=== PATIENT | female | born 1985 | race Caucasian/White ===

== ENCOUNTER 2017-01-25 18:52 | Emergency (ER) | payer MEDICAID ==
[~2017-01-25] VITALS: Ht 162.6 cm; Wt 75.5 kg
[~2017-01-25 18:52] MED LIST: NO MEDS
[2017-01-25] MEDS ORDERED: IBUP-2070 PO (19:05)
[2017-01-25 19:58] VITALS: BP 138/88
== END 2017-01-25 20:06 | disposition home or self-care (01) ==
LOC: EMS 18:53
DX: K02.9 Dental caries, unspecified (principal); N83.201 Unspecified ovarian cyst, right side
CPT/HCPCS: 99283

== ENCOUNTER 2018-09-05 23:44 | Emergency (ER) | payer MEDICAID, OTHER ==
[~2018-09-05] VITALS: Ht 167.6 cm; Wt 79.5 kg
[~2018-09-05 23:44] MED LIST changes: +IBUP-2070 PO; -NO MEDS
[2018-09-06] MEDS ORDERED: KETOROLAC TROMETHAMINE 60 MG/2 ML VIAL IM ONE (02:30)
[2018-09-06] MEDS ORDERED: CARISOPRODOL 350 MG TABLET PO ONE (02:30)
[2018-09-06 03:23] LABS: APPEARANCE,URINE CLEAR (CLEAR); BILIRUBIN,URINE NEGATIVE (NEGATIVE); GLUCOSE, URINE (UA) >=1000 mg/dL (NEGATIVE); KETONES,URINE NEGATIVE (NEGATIVE); LEUKOCYTE ESTERASE ,URINE NEGATIVE (NEGATIVE); NITRATE,URINE NEGATIVE (NEGATIVE); OCCULT BLOOD,URINE MODERATE (NEGATIVE); PROTEIN,URINE NEGATIVE (NEGATIVE); UROBILINOGEN,URINE 0.2 mg/dL (<=1.0)
[2018-09-06 03:30] VITALS: BP 116/67
[2018-09-06 03:32] LABS: BACTERIA,URINE None Seen /HPF (None Seen); SQUAMOUS EPITHELIAL CELL,UR Rare /LPF (None Seen)
== END 2018-09-06 04:18 | disposition home or self-care (01) ==
LOC: EMS 23:45
DX: M54.5 Low back pain (principal); M54.6 Pain in thoracic spine; Z90.710 Acquired absence of both cervix and uterus
CPT/HCPCS: 72100; 81001; 84703; 96372; 99284; J1885

== ENCOUNTER 2023-12-20 09:56 | Emergency (ER) | payer OTHER ==
[~2023-12-20] VITALS: Ht 154.9 cm; Wt 73.6 kg
[2023-12-20 10:03] VITALS: TEMP 98.4
[2023-12-20] MEDS: LIDOCAINE 1% 10 ML VIAL PERC ONE (12:08)
[2023-12-20] MEDS: PERTUSS(ACELL),DIPH,TET/PF 0.5 ML SYRINGE [ADULT] IM. ONE (12:11)
[2023-12-20] MEDS: BACITRACIN 0.9 GM PACKET OINTMENT TP ONE (13:13)
[2023-12-20 13:50] VITALS: BP 118/67; PULSE 73; RESP 18
== END 2023-12-20 13:57 | disposition home or self-care (01) ==
LOC: EMS 09:56
DX: S61.411A Laceration without foreign body of right hand, initial encounter (principal); W26.8XXA Contact with other sharp object(s), not elsewhere classified, initial encounter; Y93.89 Activity, other specified; Y92.89 Other specified places as the place of occurrence of the external cause; Y99.8 Other external cause status
CPT/HCPCS: 12001; 90471; 90715; 99283; J3490

== ENCOUNTER 2024-08-14 17:43 | Emergency (ER) | payer OTHER ==
[~2024-08-14] VITALS: Ht 157.5 cm; Wt 67.7 kg
[2024-08-14] MEDS: ACETAMINOPHEN 500 MG TABLET PO ONE (18:23)
[2024-08-14 18:30] LABS: COVID AG,FIA SOURCE NASAL SWAB
[2024-08-14 18:34] LABS: APPEARANCE,URINE CLEAR (CLEAR); BILIRUBIN,URINE NEGATIVE (NEGATIVE); COLOR,URINE COLORLESS (YELLOW); GLUCOSE, URINE (UA) >=1000 mg/dL (NEGATIVE); LEUKOCYTE ESTERASE ,URINE NEGATIVE (NEGATIVE); NITRATE,URINE NEGATIVE (NEGATIVE); OCCULT BLOOD,URINE TRACE (NEGATIVE); PROTEIN,URINE NEGATIVE (NEGATIVE); SPECIFIC GRAVITIY, URINE 1.031 (1.003-1.030); UROBILINOGEN,URINE <=1.0 mg/dL (<=1.0)
[2024-08-14 18:53] LABS: INFLUENZA TYPE A NEGATIVE FOR TYPE A (NEGATIVE); INFLUENZA TYPE B NEGATIVE FOR TYPE B (NEGATIVE); SARS-COV2 (COVID) ANTIGEN,FIA Negative (Negative)
[2024-08-14 19:25] LABS: BACTERIA,URINE None Seen /HPF (None Seen); SQUAMOUS EPITHELIAL CELL,UR Few /LPF (None Seen)
[2024-08-14 19:44] LABS: BASOPHILS % (AUTO) 0.3 % (0.0-2.0); EOSINOPHILS % (AUTO) 0 % (1.0-6.0); HEMOGLOBIN 11.8 g/dL (12.0-16.0); LYMPHOCYTES # (AUTO) 1.4 K/uL (1.0-4.8); MEAN CORPUSCULAR HEMOGLOBIN 29.4 pg (26.0-34.0); MEAN CORPUSCULAR HGB CONC 32.9 G/dL (31.0-37.0); MEAN CORPUSCULAR VOLUME 89 fL (80-100); MONOCYTES # (AUTO) 0.9 K/uL (0.1-1.0); MONOCYTES % (AUTO) 7.9 % (2.0-9.0); NEUTROPHILS # (AUTO) 9.5 K/uL (1.8-7.7); NEUTROPHILS % (AUTO) 79.8 % (40.0-70.0); PLATELET COUNT (AUTO) 206 K/uL (150-450); RED BLOOD CELL COUNT(AUTO) 4.03 MIL/uL (4.00-5.20); WHITE BLOOD COUNT (AUTO) 11.9 K/uL (4.5-11.0)
[2024-08-14 19:54] LABS: ANION GAP 7 mmol/L (8-16); CALCIUM, TOTAL 8.8 mg/dL (8.8-10.5); CARBON DIOXIDE 26 mmol/L (22-29); CHLORIDE 95 mmol/L (98-107); GLOMERULAR FILTR. RATE CALC > 60 mL/min (>60); GLUCOSE,RANDOM 390 mg/dL (70-110); LIPASE 13 U/L (16-77); POTASSIUM 4.6 mmol/L (3.5-5.1); SODIUM SERUM 128 mmol/L (136-145); UREA NITROGEN, BLOOD 7 mg/dL (7-18)
[2024-08-14] MEDS: SODIUM CHLORIDE 0.9% 1,000 ML IV ONE (21:29)
[2024-08-14] MEDS: ONDANSETRON HCL 4 MG/2 ML VIAL IVP ONE (21:29)
[2024-08-14] MEDS: KETOROLAC TROMETHAMINE 30 MG/ML VIAL IVP ONE (21:29)
[2024-08-14 22:31] VITALS: BP 124/73; PULSE 100; RESP 18; TEMP 99.4; O2SAT 98
== END 2024-08-14 22:56 | disposition home or self-care (01) ==
LOC: EMS 17:43
DX: B34.9 Viral infection, unspecified (principal); R73.9 Hyperglycemia, unspecified; Z90.710 Acquired absence of both cervix and uterus; Z20.822 Contact with and (suspected) exposure to COVID-19
CPT/HCPCS: 99284; 96374; 96361; 96375; 87426; 80048; 81001; 83690; 84703; 85025; 87430; 87804; 36415; J1885; J2405; J7030